=== PATIENT | male | born 1985 | race Caucasian/White ===

== ENCOUNTER 2020-08-01 14:05 | Emergency (ER) | payer SELFPAY ==
[~2020-08-01] VITALS: Ht 182.9 cm; Wt 95.3 kg
[2020-08-01 14:11] VITALS: BP 181/81
[2020-08-01] MEDS ORDERED: LORazepam 1 MG TAB PO ONE (14:40)
--- NOTE | 2020-08-01 14:59 | NUR ---
C/O CHEST DISCOMFORT + ANXIETY, RADIATES TO BACK X6 MONTHS. PATIENT STATES HE HAS BEEN AVOIDING COMING TO HOSPITAL D/T FEAR OF COVID, AND IS ANXIOUS AT THIS TIME. DENIES ANY SOB. PT STATES THAT LAST NIGHT HE DID COCAINE, AND IT WAS HIS FIRST TIME NO PMH NKDA
[2020-08-01 15:21] LABS: BASOPHILS % (AUTO) 0.3 % (0.0-2.0); EOSINOPHILS % (AUTO) 0.1 % (0.0-4.0); HEMATOCRIT 50.3 % (36-52); HEMOGLOBIN 17.3 g/dL (12.0-18.0); LYMPHOCYTES # (AUTO) 2.7 K/uL (2.0-11.5); LYMPHOCYTES % (AUTO) 19.6 % (20.5-51.1); MEAN CORPUSCULAR HEMOGLOBIN 32 pg (27-31); MEAN CORPUSCULAR HGB CONC 35 g/dL (33-37); MEAN CORPUSCULAR VOLUME 92.6 fL (80-94); MONOCYTES # (AUTO) 1.4 K/uL (0.8-1.0); MONOCYTES % (AUTO) 9.8 % (1.7-9.3); NEUTROPHILS # (AUTO) 9.7 K/uL (1.8-7.7); NEUTROPHILS % (AUTO) 70.2 % (42.2-75.2); PLATELET COUNT (AUTO) 346 K/uL (140-450); RED BLOOD CELL COUNT(AUTO) 5.43 MIL/uL (4.20-6.10); RED CELL DISTRIBUTION WIDTH 13.5 % (11.6-13.7); WHITE BLOOD COUNT (AUTO) 13.9 K/uL (4.8-10.8)
--- NOTE | 2020-08-01 15:27 | NUR ---
PATIENT RETURNED FROM XRAY. EKG BEING PERFORMED.
[2020-08-01 15:38] LABS: PROTHROMBIN TIME 16.1 secs (10.8-13.4)
--- NOTE | 2020-08-01 15:48 | NUR ---
ATTEMPTED TO COLLECT UA. PATIENT STATES UNABLE TO AT THIS TIME.
[2020-08-01 15:50] LABS: ALBUMIN 4.5 g/dL (3.4-5.0); ANION GAP 13.1 (8-16); CARBON DIOXIDE 28.9 mmol/L (21-32)
[2020-08-01 16:14] LABS: BARBITURATE, URINE NEGATIVE ng/ml (NEG <=200); BENZODIAZEPINE, URINE POSITIVE ng/mL (NEG <=200); CANNABINOID, URINE POSITIVE ng/mL (NEG <=50); COCAINE, URINE POSITIVE ng/mL (NEG <=300); OPIATE, URINE POSITIVE ng/mL (NEG <=2000); PHENCYCLIDINE SCREEN,URINE NEGATIVE ng/mL (NEG <=25)
--- NOTE | 2020-08-01 16:44 | NUR ---
NOTIFIED ERMD ABOUT MULTIPLE ATTEMPTS OF UA COLLECTION. STATED NO LONGER NEEDED UA.
[2020-08-01 17:26] VITALS: BP 181/81
--- NOTE | 2020-08-01 17:26 | NUR ---
Patient discharged with v/s stable. Written and verbal after care instructions given and explained. Patient alert, oriented and verbalized understanding of instructions. Ambulatory with steady gait. All questions addressed prior to discharge. ID band removed. Patient advised to follow up with PMD. Rx of FAMOTIDINE given. Patient educated on indication of medication including possible reaction and side effects. Opportunity to ask questions provided and answered.
== END 2020-08-01 17:26 | disposition home or self-care (01) ==
LOC: MED 14:05
DX: R07.89 Other chest pain (principal); F14.10 Cocaine abuse, uncomplicated; F12.10 Cannabis abuse, uncomplicated; F11.10 Opioid abuse, uncomplicated; E87.6 Hypokalemia; D72.829 Elevated white blood cell count, unspecified; E11.9 Type 2 diabetes mellitus without complications
CPT/HCPCS: 36415; 71045; 80053; 80305; 83880; 84484; 85025; 85610; 85730; 93005; 99285